=== PATIENT | male | born 1935 | race Caucasian/White ===

== ENCOUNTER 2017-06-22 07:53 | Day surgery (SDC) | payer MEDICARE ==
[~2017-06-22] VITALS: Ht 175.3 cm; Wt 89.6 kg
[~2017-06-22 07:53] MED LIST: ALPR1 PO; ATOR10 PO; Aspirin EC81 MG; Bactrim Ds Tab1 EACH PO; CEPH500 PO; Ipratropium Bro30 ML; Keflex500 MG PO; Lotrimin Ultra12 GM TP; MELO7.5 PO; OXYACE5T; OXYC10ER; TERA5 PO; TRIHYD253B PO; VALS80 PO; VITAMIN D5000 UNI1 PO; Vitamin B Comple1 EA PO
== END 2017-06-22 10:28 | disposition home or self-care (01) ==
LOC: ORSCSDS 07:53
PROVIDERS: Ophthalmology
PROC: 08RK3JZ Replacement of Left Lens with Synthetic Substitute, Percutaneous Approach (ICD-10-PCS; principal; 2017-06-22 09:30)
DX: H25.12 Age-related nuclear cataract, left eye (principal); I10 Essential (primary) hypertension; Z79.82 Long term (current) use of aspirin; Z79.899 Other long term (current) drug therapy
CPT/HCPCS: J2250; J3301; J7040; V2632

== ENCOUNTER → 2018-02-20 | Outpatient (CLI) | payer MEDICARE | END | disposition home or self-care (01) | LOC: LAB SHORT 08:08 → PLD 08:08 | DX: D48.5 Neoplasm of uncertain behavior of skin (principal) | CPT/HCPCS: 88305 ==

== ENCOUNTER → 2018-07-03 | Outpatient (CLI) | payer MEDICARE | END | disposition home or self-care (01) | LOC: PLD 10:01 → LAB SHORT 10:01 | DX: D48.5 Neoplasm of uncertain behavior of skin (principal) | CPT/HCPCS: 88305 ==

== ENCOUNTER 2019-06-19 13:59 | Emergency (ER) | payer MEDICARE ==
[~2019-06-19] VITALS: Ht 172.7 cm; Wt 81.7 kg
[2019-06-19] MEDS ORDERED: LOSA25 (14:15)
[2019-06-19 14:37] LABS: BASOPHILS ABSOLUTE AUTO 0.04 K/mm3 (0.00-0.23); BASOPHILS PERCENT AUTO 0 % (0-2); EOSINOPHILS ABSOLUTE AUTO 0.06 K/mm3 (0.00-0.68); EOSINOPHILS PERCENT AUTO 1 % (0-6); Hematocrit 44.1 % (37.0-53.0); IMMATURE GRAN ABSOLUTE AUTO 0.06 K/mm3 (0.00-0.10); IMMATURE GRAN PERCENT AUTO 1 % (0-1); LYMPHOCYTES ABSOLUTE AUTO 0.75 K/mm3 (0.84-5.20); LYMPHOCYTES PERCENT AUTO 7 % (21-46); MONOCYTES ABSOLUTE AUTO 0.81 K/mm3 (0.16-1.47); MONOCYTES PERCENT AUTO 7 % (4-13); Mean Corpuscular HGB 26.6 pg (26.0-34.0); Mean Corpuscular HGB Conc 31.7 g/dL (31.5-36.5); Mean Corpuscular Volume 84 fL (80-100); Mean Platelet Volume 8.8 fL (9.1-12.4); NEUTROPHILS ABSOLUTE AUTO 9.35 K/mm3 (1.96-9.15); NEUTROPHILS PERCENT AUTO 85 % (41-73); Platelet Count 157 K/mm3 (150-400); RDW Coefficient Variation 15.9 % (11.7-14.2); RDW Standard Deviation 48.4 fL (35.1-46.3); Red Blood Cell Count 5.27 M/mm3 (4.30-5.90); White Blood Cell Count 11.07 K/mm3 (4.00-11.30)
[2019-06-19 14:56] LABS: Alanine Aminotransfer (ALT/SGP 24 U/L (12-78); Albumin, Blood 3.5 g/dL (3.4-5.0); Alk Phos 74 U/L (50-136); Anion Gap 6 mmol/L (6-16); Aspartate Aminotrans (AST/SGOT 10 U/L (12-37); Bilirubin, Total 0.6 mg/dL (0.1-1.0); Blood Urea Nitrogen 27 mg/dL (8-24); Bun/Creatinine Ratio 18.1 (12.0-20.0); CO2, Blood 28 mmol/L (21-32); Calcium, Blood 8.6 mg/dL (8.5-10.1); Chloride, Blood 106 mmol/L (98-108); Creatinine, Blood 1.49 mg/dL (0.60-1.20); Globulin, Blood 3.4 g/dL (2.2-4.0); Glomerular Filtration Rate 48 (60-); Glucose, Blood 162 mg/dL (70-99); Potassium, Blood 3.4 mmol/L (3.5-5.5); Sodium, Blood 140 mmol/L (136-145); Total Protein, Blood 6.9 g/dL (6.4-8.2); Troponin I <0.015 ng/mL (0.000-0.040)
== END 2019-06-19 17:00 | disposition home or self-care (01) ==
LOC: ER 13:59
PROVIDERS: Emergency Medicine
DX: R55 Syncope and collapse (principal); R19.7 Diarrhea, unspecified; I10 Essential (primary) hypertension; Z79.899 Other long term (current) drug therapy
CPT/HCPCS: 71046; 80053; 84484; 85025; 93005; 93010; 96360; 99284-25; J7030

== ENCOUNTER → 2019-06-25 | Outpatient (CLI) | payer MEDICARE ==
[~2019-06-25] MED LIST changes: +LOSA25
== END | disposition home or self-care (01) ==
LOC: LAB SHORT 10:00 → OLS 10:00
DX: R19.7 Diarrhea, unspecified (principal)
CPT/HCPCS: 87493

== ENCOUNTER 2019-07-13 22:05 | Emergency (ER) | payer MEDICARE ==
[~2019-07-13] VITALS: Ht 172.7 cm; Wt 83.0 kg
[2019-07-13] MEDS ORDERED: BENZ100A PO (23:36)
[2019-07-13] MEDS ORDERED: IBUP400 PO (23:37)
== END 2019-07-13 23:49 | disposition home or self-care (01) ==
LOC: ER 22:05
DX: J06.9 Acute upper respiratory infection, unspecified (principal); I10 Essential (primary) hypertension; Z79.899 Other long term (current) drug therapy
CPT/HCPCS: 71046; 99283-25

== ENCOUNTER → 2020-08-16 | Outpatient (CLI) | payer MEDICARE ==
[~2020-08-16] MED LIST changes: +BENZ100A PO; +IBUP400 PO
[2020-08-16 10:32] LABS: BASOPHILS ABSOLUTE AUTO 0.02 K/mm3 (0.00-0.23); BASOPHILS PERCENT AUTO 0 % (0-2); EOSINOPHILS ABSOLUTE AUTO 0.06 K/mm3 (0.00-0.68); EOSINOPHILS PERCENT AUTO 1 % (0-6); Hematocrit 45.8 % (37.0-53.0); IMMATURE GRAN ABSOLUTE AUTO 0.02 K/mm3 (0.00-0.10); IMMATURE GRAN PERCENT AUTO 0 % (0-1); LYMPHOCYTES ABSOLUTE AUTO 1.08 K/mm3 (0.84-5.20); LYMPHOCYTES PERCENT AUTO 21 % (21-46); MONOCYTES ABSOLUTE AUTO 0.49 K/mm3 (0.16-1.47); MONOCYTES PERCENT AUTO 10 % (4-13); Mean Corpuscular HGB 28.8 pg (26.0-34.0); Mean Corpuscular HGB Conc 32.8 g/dL (31.5-36.5); Mean Corpuscular Volume 88 fL (80-100); Mean Platelet Volume 8.8 fL (9.1-12.4); NEUTROPHILS PERCENT AUTO 68 % (41-73); Platelet Count 147 K/mm3 (150-400); RDW Coefficient Variation 13.5 % (11.7-14.2); RDW Standard Deviation 43.5 fL (35.1-46.3); Red Blood Cell Count 5.21 M/mm3 (4.30-5.90); White Blood Cell Count 5.17 K/mm3 (4.00-11.30)
[2020-08-16 10:52] LABS: Alanine Aminotransfer (ALT/SGP 22 U/L (12-78); Albumin, Blood 3.9 g/dL (3.4-5.0); Alk Phos 75 U/L (50-136); Anion Gap 3 mmol/L (6-16); Aspartate Aminotrans (AST/SGOT 17 U/L (12-37); Blood Urea Nitrogen 14 mg/dL (8-24); Bun/Creatinine Ratio 15.9 (12.0-20.0); CO2, Blood 31 mmol/L (21-32); Calcium, Blood 9.4 mg/dL (8.5-10.1); Chloride, Blood 108 mmol/L (98-108); Creatinine, Blood 0.88 mg/dL (0.60-1.20); Globulin, Blood 3.8 g/dL (2.2-4.0); Glomerular Filtration Rate >60 (60-); Glucose, Blood 101 mg/dL (70-99); Potassium, Blood 4.1 mmol/L (3.5-5.5); Sodium, Blood 142 mmol/L (136-145); Total Protein, Blood 7.7 g/dL (6.4-8.2); Uric Acid, Blood 3.4 mg/dL (3.5-7.2)
== END ==
LOC: LAB 10:00 → LAB SHORT 10:00
PROVIDERS: Physician Assistant
DX: M25.561 Pain in right knee (principal)
CPT/HCPCS: 80053; 84550; 85025

== ENCOUNTER 2021-05-14 08:07 | Day surgery (SDC) | payer MEDICARE ==
[~2021-05-14] VITALS: Ht 172.7 cm; Wt 85.4 kg
[2021-05-14] MEDS ORDERED: PENVK500 (08:33)
--- NOTE | 2021-05-14 08:40 | NUR ---
05/14/21 0840 Lana Murillo 0818 TET[address]INE DROP PLACED BY ORS.KIRSTEN, [address]ED BY [facility].KIRSTEN
--- NOTE | 2021-05-14 10:01 | NUR ---
05/14/21 1001 Kera Pettit PT AWAKE, ALERT, ORIENTED. COMMUNICATES CLEARLY. PT SMILING AND CONTINUED TO TELL STORIES. VS WNL. PT STATED HE IS READY TO GO HOME.
== END 2021-05-14 10:00 | disposition home or self-care (01) ==
LOC: ORSCSDS 08:07
PROVIDERS: Ophthalmology
PROC: 08RJ3JZ Replacement of Right Lens with Synthetic Substitute, Percutaneous Approach (ICD-10-PCS; principal; 2021-05-14 09:30)
DX: H25.11 Age-related nuclear cataract, right eye (principal); H21.81 Floppy iris syndrome; Z79.899 Other long term (current) drug therapy
CPT/HCPCS: J2001; J2250; J3010; J3301; J7040; V2632

== ENCOUNTER 2021-12-16 17:05 | Emergency (ER) | payer MEDICARE ==
[~2021-12-16] VITALS: Ht 175.3 cm; Wt 86.2 kg
[~2021-12-16 17:05] MED LIST changes: +ASPI81CH PO; +ATORVASTATIN CA20 MG PO; +CLOP75 PO; +Hytrin2 MG PO; +LOSA25 PO; +LOSARTAN POTAS100 MG; +LOSARTAN POTAS100 MG PO; +PENVK500
== END 2021-12-16 19:18 | disposition home or self-care (01) ==
LOC: ER 17:05
DX: S09.90XA Unspecified injury of head, initial encounter (principal); W18.30XA Fall on same level, unspecified, initial encounter; I10 Essential (primary) hypertension; F41.9 Anxiety disorder, unspecified; Z79.899 Other long term (current) drug therapy; Z79.01 Long term (current) use of anticoagulants
CPT/HCPCS: 70450; 99283-25; A9270

== ENCOUNTER → 2023-12-05 | Outpatient (CLI) | payer MEDICARE ==
[~2023-12-05] MED LIST changes: +ERTAPENEM1 G6 IV; +OXYC5; +Pyridium100 MG PO; +ROBITUSSIN DM PO; +Tessalon200 MG PO; +VISBIOME 112.51 EACH PO
== END | disposition home or self-care (01) ==
LOC: LAB SHORT 08:29 → LAB 08:29
DX: R30.0 Dysuria (principal)
CPT/HCPCS: 87077; 87086; 87186

== ENCOUNTER 2023-12-19 07:58 | Day surgery (SDC) | payer MEDICARE ==
[2023-12-19] MEDS ORDERED: Ertapenem Sodium 1,000 MG in NS 50 ML IV SCH (08:10)
[2023-12-19 08:33] VITALS: BP 139/80
[2023-12-20] MEDS ORDERED: Mupirocin22 GM TOP (19:11)
== END 2023-12-19 09:01 | disposition home or self-care (01) ==
LOC: ATC 07:58
DX: Z16.12 Extended spectrum beta lactamase (ESBL) resistance (principal)
CPT/HCPCS: 96365; J1335

== ENCOUNTER 2023-12-20 02:49 | Day surgery (SDC) | payer MEDICARE ==
[~2023-12-20 02:49] MED LIST changes: +Ertapenem Sodium 1,000 MG in NS 50 ML IV SCH
[2023-12-20 10:35] VITALS: BP 140/87
[2023-12-20] MEDS ORDERED: Mupirocin22 GM TOP (19:11)
== END 2023-12-20 11:06 | disposition home or self-care (01) ==
LOC: ATC 02:49
DX: N39.0 Urinary tract infection, site not specified (principal); Z16.12 Extended spectrum beta lactamase (ESBL) resistance; I10 Essential (primary) hypertension; E78.5 Hyperlipidemia, unspecified; Z79.82 Long term (current) use of aspirin; Z79.899 Other long term (current) drug therapy; I80.8 Phlebitis and thrombophlebitis of other sites
CPT/HCPCS: 80053; 83605; 85025; 87040; 96365; J1335

== ENCOUNTER 2023-12-20 15:38 | Emergency (ER) | payer MEDICARE ==
[~2023-12-20] VITALS: Ht 172.7 cm; Wt 86.2 kg
[~2023-12-20 15:38] MED LIST changes: -Ertapenem Sodium 1,000 MG in NS 50 ML IV SCH
[2023-12-20 16:09] VITALS: BP 159/78
[2023-12-20 17:07] LABS: BASOPHILS ABSOLUTE AUTO 0.02 K/mm3 (0.00-0.23); BASOPHILS PERCENT AUTO 0 % (0-2); EOSINOPHILS ABSOLUTE AUTO 0.14 K/mm3 (0.00-0.68); EOSINOPHILS PERCENT AUTO 3 % (0-6); Hematocrit 44.4 % (37.0-53.0); Hemoglobin 14.4 g/dL (13.5-17.5); IMMATURE GRAN ABSOLUTE AUTO 0.03 K/mm3 (0.00-0.10); IMMATURE GRAN PERCENT AUTO 1 % (0-1); LYMPHOCYTES ABSOLUTE AUTO 1.13 K/mm3 (0.84-5.20); LYMPHOCYTES PERCENT AUTO 23 % (21-46); MONOCYTES ABSOLUTE AUTO 0.53 K/mm3 (0.16-1.47); MONOCYTES PERCENT AUTO 11 % (4-13); Mean Corpuscular HGB 27.5 pg (26.0-34.0); Mean Corpuscular HGB Conc 32.4 g/dL (31.5-36.5); Mean Corpuscular Volume 85 fL (80-100); Mean Platelet Volume 8.6 fL (9.1-12.4); NEUTROPHILS ABSOLUTE AUTO 3.07 K/mm3 (1.96-9.15); NEUTROPHILS PERCENT AUTO 62 % (41-73); Platelet Count 141 K/mm3 (150-400); RDW Coefficient Variation 14.5 % (11.7-14.2); RDW Standard Deviation 44.6 fL (35.1-46.3); Red Blood Cell Count 5.24 M/mm3 (4.30-5.90); White Blood Cell Count 4.92 K/mm3 (4.00-11.30)
[2023-12-20 17:36] LABS: Albumin, Blood 3.5 g/dL (3.4-5.0); Albumin/Globulin Ratio 0.9 (0.8-1.8); Bilirubin, Total 0.6 mg/dL (0.1-1.0); Calcium, Blood 9.3 mg/dL (8.5-10.1); Creatinine, Blood 0.8 mg/dL (0.60-1.20); Globulin, Blood 3.7 g/dL (2.2-4.0); Potassium, Blood 4.4 mmol/L (3.5-5.5); Total Protein, Blood 7.2 g/dL (6.4-8.2)
[2023-12-20] MEDS ORDERED: Mupirocin22 GM TOP (19:11)
== END 2023-12-20 19:21 | disposition home or self-care (01) ==
LOC: ER 15:38
PROVIDERS: Physician Assistant
DX: I80.8 Phlebitis and thrombophlebitis of other sites (principal); I10 Essential (primary) hypertension; Z79.82 Long term (current) use of aspirin; Z79.899 Other long term (current) drug therapy
CPT/HCPCS: 80053; 83605; 85025; 87040; 99284-25

== ENCOUNTER 2023-12-21 02:16 | Day surgery (SDC) | payer MEDICARE ==
[~2023-12-21 02:16] MED LIST changes: +Ertapenem Sodium 1,000 MG in NS 50 ML IV SCH; +Mupirocin22 GM TOP
[2023-12-21 10:32] VITALS: BP 171/94
== END 2023-12-21 11:03 | disposition home or self-care (01) ==
LOC: ATC 02:16
DX: N39.0 Urinary tract infection, site not specified (principal); Z16.12 Extended spectrum beta lactamase (ESBL) resistance; I10 Essential (primary) hypertension; E78.5 Hyperlipidemia, unspecified; N40.0 Benign prostatic hyperplasia without lower urinary tract symptoms
CPT/HCPCS: 96365; J1335

== ENCOUNTER 2023-12-22 01:56 | Day surgery (SDC) | payer MEDICARE ==
[2023-12-22 10:43] VITALS: BP 152/96
== END 2023-12-22 11:07 | disposition home or self-care (01) ==
LOC: ATC 01:56
DX: Z16.12 Extended spectrum beta lactamase (ESBL) resistance (principal)
CPT/HCPCS: 96365; J1335

== ENCOUNTER 2023-12-23 05:35 | Day surgery (SDC) | payer MEDICARE | END 2023-12-23 10:40 | disposition home or self-care (01) | LOC: ATC 05:35 | DX: N39.0 Urinary tract infection, site not specified (principal); B96.20 Unspecified Escherichia coli [E. coli] as the cause of diseases classified elsewhere; Z16.12 Extended spectrum beta lactamase (ESBL) resistance; I10 Essential (primary) hypertension; E78.5 Hyperlipidemia, unspecified; Z79.82 Long term (current) use of aspirin; Z79.02 Long term (current) use of antithrombotics/antiplatelets; Z79.899 Other long term (current) drug therapy | CPT/HCPCS: 96365; J1335 ==

== ENCOUNTER → 2024-01-04 | Outpatient (CLI) | payer MEDICARE ==
[~2024-01-04] MED LIST changes: -Ertapenem Sodium 1,000 MG in NS 50 ML IV SCH
== END | disposition home or self-care (01) ==
LOC: LAB 12:00 → LAB SHORT 12:00
DX: N30.00 Acute cystitis without hematuria (principal)
CPT/HCPCS: 87077; 87086; 87186

== ENCOUNTER → 2024-01-23 | Outpatient (CLI) | payer MEDICARE ==
[2024-01-23 23:43] LABS: Bun/Creatinine Ratio 12.4 (12.0-20.0); Calcium, Blood 9.3 mg/dL (8.5-10.1); Creatinine, Blood 1.05 mg/dL (0.60-1.20); Potassium, Blood 4.6 mmol/L (3.5-5.5)
== END | disposition home or self-care (01) ==
LOC: LAB SHORT 13:33 → LAB 13:33
PROVIDERS: Internal Medicine
DX: N40.1 Benign prostatic hyperplasia with lower urinary tract symptoms (principal); N13.8 Other obstructive and reflux uropathy
CPT/HCPCS: 80048

== ENCOUNTER → 2024-03-02 | Outpatient (CLI) | payer MEDICARE ==
[2024-03-02 16:13] LABS: Source, Urine Clean Catch
[2024-03-02 16:25] LABS: Leukocyte Esterase, Urine 2+ (Neg); Specific Gravity, Urine 1.025 (1.003-1.022)
[2024-03-02 16:26] LABS: Appearance, Urine Turbid (Clear); Bacteria Many /hpf; Bilirubin, Urine Neg (Neg); Blood, Urine 1+ (Neg); Color, Urine Yellow (P-Yellow); Glucose Qualitative, Urine Neg (Normal); Ketones, Urine Neg (Neg); Nitrite, Urine Pos (Neg); Protein, Urine 1+ (Neg); Renal Epithelial Few /hpf (0-Rare); Squamous Epithelial Cells Few /hpf (Few); Urobilinogen, Urine NORM (Normal); White Blood Cells, Urine TNTC /hpf (0-5)
== END | disposition home or self-care (01) ==
LOC: LAB SHORT 16:08 → LAB 16:08 → LAB FUT 03-02 13:10
PROVIDERS: Urology
DX: R30.0 Dysuria (principal)
CPT/HCPCS: 81001; 87077; 87086; 87186

== ENCOUNTER → 2024-03-28 | Outpatient (CLI) | payer MEDICARE | END | disposition home or self-care (01) | LOC: LAB 17:35 → LAB SHORT 17:35 | DX: N30.00 Acute cystitis without hematuria (principal) | CPT/HCPCS: 87077; 87086; 87186 ==

== ENCOUNTER 2024-05-02 13:07 | Day surgery (SDC) | payer MEDICARE ==
[~2024-05-02] VITALS: Ht 175.3 cm; Wt 85.8 kg
[~2024-05-02 13:07] MED LIST changes: +NS 500 ML IV ONE
[2024-05-02] MEDS ORDERED: Lidocaine 1%-Epineph 1:100000 20 ML MDV ONE (14:06)
[2024-05-02] MEDS ORDERED: NS 1,000 ML IV ONE (14:21)
--- NOTE | 2024-05-02 15:42 | NUR ---
05/02/24 1542 Matt Peters PT STATES SDU SBP WITHIN 20% OF BASELINE. HE WAS INSTRUCTED TO MONITOR B/P AT HOME, AND FOLLOW UP WITH PCP NEEDED. HE REPORTED MILD BEING MILDLY "LIGHTHEADED" AND UNSTEADY AFTER INITIALLY SITTING UP IN SDU. HE STATED THESE SYMPTOMS HAD RESOLVED PRIOR TO D/C. HE DENIED OTHER CARDIAC SYMPTOMS INCLUDING CP, SOB, DONATO, WEAKNESS, VISUAL DISTURBANCE, AND FACIAL DROOP. NONE WERE OBSERVED. HE VOIDED PRIOR TO D/C AND EXPRESSED READINESS TO RETURN HOME.
[2024-05-02 15:47] VITALS: BP 158/74
== END 2024-05-02 15:37 | disposition home or self-care (01) ==
LOC: ORSCSDS 13:07
PROVIDERS: Orthopaedic Surgery
PROC: 01N54ZZ Release Median Nerve, Percutaneous Endoscopic Approach (ICD-10-PCS; principal; 2024-05-02 14:30)
DX: G56.03 Carpal tunnel syndrome, bilateral upper limbs (principal); E78.5 Hyperlipidemia, unspecified; Z79.82 Long term (current) use of aspirin; Z79.899 Other long term (current) drug therapy
CPT/HCPCS: J7040

== ENCOUNTER → 2024-08-17 | Outpatient (CLI) | payer MEDICARE ==
[~2024-08-17] MED LIST changes: -NS 500 ML IV ONE
== END ==
LOC: LAB SHORT 12:43 → LAB 12:43
DX: N30.00 Acute cystitis without hematuria (principal)
CPT/HCPCS: 87086